=== PATIENT | male | born 1935 | race Caucasian/White ===

== ENCOUNTER 2017-10-02 15:57 | Emergency (ER) | payer MEDICARE ==
[~2017-10-02] VITALS: Ht 172.7 cm; Wt 99.0 kg
[2017-10-02 16:09] VITALS: BP 179/90; PULSE 97; RESP 16; TEMP 98.1; O2SAT 95
--- NOTE | 2017-10-02 17:25 | PD ---
HPI Chief Complaint: Laceration/Skin Injury Time Seen by Provider: 17:15 Travel History International Travel<30 days: No Contact w/Intl Traveler<30days: No Traveled to known affect area: No History of Present Illness HPI 82-year-old male presents to the ED for evaluation after a mechanical fall. Patient states he tripped and fell onto the sidewalk, striking his chin in the process. He denies loss of consciousness. On presentation he complains of 3/ 10 posterior neck pain, no alleviating or exacerbating symptoms reported. He denies headache, dizziness, malocclusion, loose teeth, nausea, vomiting. He states that "I didn't even lose my glasses." He is unsure of his last tetanus immunization. He drove himself here today. PFSH Past Medical History Cardiovascular Problems: Yes (pacemaker) Diminished Hearing: No Tetanus Vaccination: > 5 Years Influenza Vaccination: No ?: Not Past Surgical History Cardiac Surgery: Yes (pace maker ) Pacemaker: Yes Social History Alcohol Use: No Tobacco Use: No Substance Use: No Allergies-Medications (Allergen,Severity, Reaction): Coded Allergies: No Known Allergies (Unverified , 10/02/17) Review of Systems Except as stated in HPI: all other systems reviewed are Neg Physical Exam Narrative GENERAL: Well-nourished, well-developed white male in no acute distress. SKIN: Warm and dry. There is a 2 cm laceration in the midline below the mandible. Thorough evaluation reveals no other edema, ecchymosis, abrasion, or laceration of the skin. HEAD: Normocephalic. Atraumatic. No raccoon eyes or valladares sign. No tenderness to palpation of the skull. No bony step-offs. No malocclusion of the teeth. EYES: No scleral icterus. No injection or drainage. PERRLA. EOMI. ENT: Pearly montes tympanic membrane is bilaterally. Nasal mucosa is moist. Oropharynx without erythema, edema or exudate. NECK: Supple, trachea midline. No JVD or lymphadenopathy. + "mild" midline TTP. CARDIOVASCULAR: Regular rate and rhythm without murmurs, gallops, or rubs. 2+ DP and radial pulses bilaterally. RESPIRATORY: Breath sounds clear and equal bilaterally. No accessory muscle use. GASTROINTESTINAL: Abdomen soft, non-tender, nondistended. + Bowel sounds MUSCULOSKELETAL: No cyanosis, or edema. No tenderness to palpation or limitations to range of motion of the joints of the upper and lower extremities bilaterally. NEUROLOGICAL: Awake and alert. Cranial nerves II through XII intact. Motor and sensory grossly within normal limits. 5/5 muscle strength in all muscle groups. Normal speech. BACK: Nontender without obvious deformity. No CVA tenderness. No midline tenderness. Data Data Last Documented VS Vital Signs Date Time Temp Pulse Resp B/P (MAP) Pulse Ox O2 Delivery O2 Flow Rate FiO2 10/02/17 16:09 98.1 97 16 179/90 (119) [address] Cerv Spine W/O Contrast (10/02/17 17:20) Ct Facial Bones W/O Iv Cont (10/02/17 17:20) Tetanus/Diphtheria Tox Adult (Tetanus/Di (10/02/17 17:30) Lidocaine 1% Inj (Xylocaine 1% Inj) (10/02/17 17:30) Ed Discharge Order (10/02/17 19:00) MDM Medical Decision Making Medical Screen Exam Complete: Yes Emergency Medical Condition: Yes Differential Diagnosis Laceration versus need for tetanus immunization versus facial fracture versus cervical spinal injury versus other Narrative Course 82-year-old male presents to the ED for evaluation after a mechanical fall. Patient states he tripped and fell onto the sidewalk, striking his chin in the process. He denies loss of consciousness. He is unsure of his last tetanus immunization. He drove himself here today. Vitals reviewed. On exam this is a hard of hearing white male in no acute distress. There is a 1.5 cm laceration in the midline just below the mandible of the exam is otherwise reassuring. CT of the facial bones and cervical spine revealed no acute injury. Laceration repair was performed. Please see my procedure note for details. Patient's tetanus immunization was updated. He was given detailed wound care and follow-up instructions. He is stable and discharged home. Procedures Procedure Narrative LACERATION LOCATION: Distal to the midline of the mandible. LENGTH: 1.5 cm NUMBER OF STITCHES/YELITZA: 3 REPAIR: The area of the laceration was prepped with Betadine and sterilely draped. The laceration was infiltrated with 1% lidocaine. The wound was copiously irrigated and explored without evidence of foreign body, tendon injury or neurovascular injury. The wound was closed using 4-0 Prolene. This was a single layer repair. A sterile dressing was applied. The patient was advised to keep the dressing clean and dry. Patient tolerated the procedure well. Diagnosis Primary Impression: Fall Qualified Codes: W19.XXXA - Unspecified fall, initial encounter Additional Impression: Facial laceration Qualified Codes: S01.81XA - Laceration without foreign body of other part of head, initial encounter Referrals: Primary Care Physician Patient Instructions: Care For Your Stitches (ED), General Instructions, Laceration (ED) Additional Instructions: Rest, hydrate. Keep your wound clean, dry and covered. Suture removal in 7 days. Monitor for signs of infection such as redness, pus, swelling, fevers. [id number] medications as described on the label, as needed for body aches and pains. Follow-up with your primary care provider. Return to the ED for worsening symptoms or any urgent or emergent medical condition. Disposition: 01 DISCHARGE HOME Condition: Stable Jacki Hsu Oct 02, 2017 17:25
[2017-10-02] MEDS ORDERED: TETANUS/DIPHTHERIA TOXOID ADULT 0.5 ML VIAL IM ONE (17:30)
[2017-10-02] MEDS ORDERED: LIDOCAINE HCL 1% 20 ML VIAL INFIL ONE (17:30)
--- NOTE | 2017-10-02 18:29 | RADRPT ---
EXAM DATE/TIME: 10/02/2017 18:12 [facility] COMPARISON: No previous studies available for comparison. INDICATIONS : Neck pain from fall. RADIATION DOSE: 26.56 CTDIvol (mGy) MEDICAL HISTORY : Cardiovascular disease. SURGICAL HISTORY : Pacemaker. ENCOUNTER: Initial ACUITY: 1 day PAIN SCALE: 5/10 LOCATION: Bilateral neck region. TECHNIQUE: Volumetric scanning of the cervical spine was performed. Multiplanar reconstructions in the sagittal, coronal and oblique axial planes were performed. Using automated exposure control and adjustment o f the mA and/or kV according to patient size, radiation dose was kept as low as reasonably achievable to obtain optimal diagnostic quality images. DICOM format image data is available electronically f or review and comparison. FINDINGS: VERTEBRAE: Normal vertebral body height. ALIGNMENT: No evidence of subluxation. 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 There are m ild degenerative changes at the other levels. CONCLUSION: Intact cervical spine. Degenerative changes as above. Byron Onofre MD on October 02, 2017 at 18:25 Board Certified Radiologist. This report was verified electronically.
--- NOTE | 2017-10-02 18:30 | RADRPT ---
EXAM DATE/TIME: 10/02/2017 18:12 [facility] COMPARISON: No previous studies available for comparison. INDICATIONS : Facial pain due to fall. Chin laceration. RADIATION DOSE: 25.71 CTDIvol (mGy) MEDICAL HISTORY : Cardiovascular disease. SURGICAL HISTORY : Pacemaker. ENCOUNTER: Initial ACUITY: 1 day PAIN SCORE: 5/10 LOCATION: Bilateral facial TECHNIQUE: Volumetric scanning of the facial bones was performed. Using automated exposure control and adjustme nt of the mA and/or kV according to patient size, radiation dose was kept as low as reasonably achiev able to obtain optimal diagnostic quality images. DICOM format image data is available electronicall y for review and comparison. FINDINGS: ORBITS: The orbital and infraorbital osseous structures are intact. The retroconal structures have a normal configuration. No radiopaque foreign bodies are seen. NASAL BONE: The nasal bone and maxillary spine are intact ZYGOMATIC ARCHES: Symmetric without evidence of fracture. SINUSES: The maxillary, ethmoid and frontal sinuses are intact. No air-fluid levels seen. NASAL CAVITY: The nasal septum is intact and midline. The lacrimal ducts are intact. SOFT TISSUES: There is a laceration and mild contusion of the chin soft tissues. No radiopaque foreign body demonst rated. INTRACRANIAL: No intracranial air seen. CRIBIFORM PLATE: Grossly intact. CONCLUSION: Chin laceration. Intact facial bones. Byron Onofre MD on October 02, 2017 at 18:27 Board Certified Radiologist. This report was verified electronically.
== END 2017-10-02 19:11 | disposition home or self-care (01) ==
LOC: PHED 15:57 → PHEFT 19:11
DX: S01.81XA Laceration without foreign body of other part of head, initial encounter (principal); W01.198A Fall on same level from slipping, tripping and stumbling with subsequent striking against other object, initial encounter; Y92.480 Sidewalk as the place of occurrence of the external cause; Z23 Encounter for immunization
CPT/HCPCS: 12011; 70486; 72125; 90471; 90714

== ENCOUNTER 2017-10-09 09:48 | Emergency (ER) | payer MEDICARE ==
[~2017-10-09] VITALS: Ht 172.7 cm; Wt 98.4 kg
[2017-10-09 09:59] VITALS: BP 192/85; PULSE 70; RESP 16; TEMP 98; O2SAT 97
--- NOTE | 2017-10-09 10:15 | PD ---
HPI Chief Complaint: Wound/Suture/Staple Re-Check Time Seen by Provider: 10:07 Travel History International Travel<30 days: No Contact w/Intl Traveler<30days: No Traveled to known affect area: No History of Present Illness HPI 82-year-old male presents to the emergency department requesting suture removal from his chin. The sutures have been in since October 02. He denies pain. Denies drainage, erythema to the wound site. Was not given antibiotics. His blood pressure is elevated in the ER. He has history of hypertension and stopped taking his blood pressure medication 1 year ago because it upset his stomach. He denies chest pain, shortness of breath, headache, change in vision , vomiting, lightheadedness, dizziness, feeling faint. No known aggravating or relieving factors. Symptoms are mild to moderate in severity. His primary care provider is in [place] and he has an appointment at the end of November. He has no other medical complaints. No other modifying factors or associated signs and symptoms. PFSH Past Medical History Cardiovascular Problems: Yes (pacemaker) Diminished Hearing: No Past Surgical History Cardiac Surgery: Yes (pace maker ) Pacemaker: Yes Social History Alcohol Use: No Tobacco Use: No Substance Use: No Allergies-Medications (Allergen,Severity, Reaction): Coded Allergies: No Known Allergies (Unverified , 10/09/17) Review of Systems Except as stated in HPI: all other systems reviewed are Neg Physical Exam Narrative GENERAL: Well-nourished, well-developed elderly, male patient, in no acute distress SKIN: Warm and dry. Underneath chin laceration that is well approximated and with stitches intact; without erythema, edema, drainage. No signs of infection. HEAD: Atraumatic. Normocephalic. EYES: Pupils equal and round. No scleral icterus. No injection or drainage. ENT: Mucosa pink and moist. Airway patent. NECK: Trachea midline. CARDIOVASCULAR: Regular rate. RESPIRATORY: No accessory muscle use. GASTROINTESTINAL: Rounded. MUSCULOSKELETAL: No obvious deformities. No clubbing. No cyanosis. No edema. NEUROLOGICAL: Awake and alert. Oriented 3. No obvious cranial nerve deficits. Motor grossly within normal limits. Normal speech. PSYCHIATRIC: Appropriate mood and affect; insight and judgment normal. Data Data Last Documented VS Vital Signs Date Time Temp Pulse Resp B/P (MAP) Pulse Ox O2 Delivery O2 Flow Rate FiO2 10/09/17 09:59 98.0 70 16 192/85 (120) 97 Room Air Orders Orders Ed Discharge Order (10/09/17 10:15) MDM Medical Decision Making Medical Screen Exam Complete: Yes Emergency Medical Condition: Yes Medical Record Reviewed: Yes Differential Diagnosis Encounter for suture removal, hypertension, high blood pressure reading, wound recheck, medical clearance Narrative Course 82-year-old male presents for suture removal from his chin. There are no signs of infection. Wound is well approximated with stitches intact. Stitches removed. Patient tolerated well. Patient's blood pressure is elevated in the ER. He is asymptomatic. He has history of hypertension and stopped taking his medications a year ago because they upset his stomach. He does have a primary care provider in [place] and has an appointment at the end of November. I did offer to address his high blood pressure and start him on medications and he declined. I discussed symptoms of symptomatic hypertension and instructed the patient to return to the ER if needed. Instructed patient to follow up with primary care provider. Patient verbalizes understanding and agreement with treatment plan. Patient is medically cleared and stable for discharge. Discussed reasons to return to the emergency department. Patient agrees with treatment plan. The patients vital signs are stable and the patient is stable for outpatient follow-up and treatment. Patient discharged home, stable and in no acute distress. Diagnosis Primary Impression: Encounter for removal of sutures Additional Impression: High blood pressure Qualified Codes: I10 - Essential (primary) hypertension Referrals: Primary Care Physician Patient Instructions: General Instructions, Hypertension (ED), Stitches Removal (ED) Additional Instructions: Topical ointment, such as Vaseline or Aquaphor, to continue with wound healing Follow-up with your primary care provider in regards to blood pressure management Follow-up with primary care provider Return to the emergency department immediately with worsening of symptoms, particularly as discussed Med/Other Pt SpecificInfo: No Change to Meds, No Meds Exist/No RX given Disposition: 01 DISCHARGE HOME Condition: Stable Ofelia Sadler Oct 09, 2017 10:15
== END 2017-10-09 10:50 | disposition home or self-care (01) ==
LOC: PHEFT 09:48
DX: S01.81XD Laceration without foreign body of other part of head, subsequent encounter (principal); I10 Essential (primary) hypertension; Z48.02 Encounter for removal of sutures; Z95.0 Presence of cardiac pacemaker; X58.XXXD Exposure to other specified factors, subsequent encounter
CPT/HCPCS: 99281